=== PATIENT | male | born 1965 | race Caucasian/White ===

== ENCOUNTER → 2019-09-16 | Outpatient (CLI) | payer OTHER ==
[2019-09-16 19:54] LABS: African American GFR (CKD) 87.1 (60.0-200.0); Albumin 4.6 g/dL (3.80-4.90); Albumin/Globulin Ratio 2.3 (1.60-3.17); Anion Gap 9.4 mmol/L (4.00-12.00); Bilirubin, Conjugated 0.2 mg/dL (0.20-0.40); Bilirubin,Unconjugated 0.6 mg/dL; Carbon Dioxide 26.6 mmol/L (21.6-31.8); Chol/HDL Ratio 3.34; LDL Cholesterol,Calculated 86.2 mg/dL (0.0-131.0); Non-African American GFR(CKD) 75.2 (60.0-200.0); Potassium 4.2 mmol/L (3.5-5.5); Total Bilirubin 0.8 mg/dL (0.2-1.2); Total Protein 6.6 g/dL (6.2-8.2); VLDL Calculation 37.8 mg/dL (5.00-40.00)
== END | disposition home or self-care (01) ==
LOC: LABWHC1 09:22
PROVIDERS: ATTEND Internal Medicine
DX: I10 Essential (primary) hypertension (principal); E55.9 Vitamin D deficiency, unspecified; E78.5 Hyperlipidemia, unspecified
CPT/HCPCS: 36415; 80051; 80061; 80076; 82306; 82565; 84520

== ENCOUNTER 2021-05-18 16:44 | Observation (INO) | payer OTHER ==
[2021-05-18] MEDS ORDERED: ONDANSETRON 4 MG/2 ML VIAL IVP STA (17:21)
[2021-05-18] MEDS ORDERED: SODIUM CHLORIDE 0.9% 500 ML 500 ML IV STA (17:21)
--- NOTE | 2021-05-18 17:26 | ED ---
General Adult HPI - General Chief complaint: Abdominal Pain Stated complaint: abdominal pain Time Seen by Provider: 05/18/21 17:10 Source: patient, RN notes reviewed, old records reviewed Mode of arrival: ambulatory Limitations: no limitations - History of Present Illness Initial comments: 55-year-old male presenting with abdominal pain over the past 16 hours. This began abruptly at approximately 2 AM this morning. This is a constant pain periumbilical region. Patient has had multiple episodes of vomiting. He had normal bowel movements yesterday. No previous abdominal surgery. No fever. - Related Data Home Medications Medication Instructions Recorded Confirmed Atorvastatin [Lipitor] 10 mg PO HS 12/14/15 05/18/21 Aspirin EC [Ecotrin Low Dose] 81 mg PO DAILY 05/18/21 05/18/21 Losartan Potassium 50 mg PO DAILY 05/18/21 05/18/21 Allergies Allergy/AdvReac Type Severity Reaction Status Date / Time No Known Allergies Allergy Verified 05/18/21 17:56 Review of Systems ROS Statement: Those systems with pertinent positive or pertinent negative responses have been documented in the HPI. ROS Other: All systems not noted in ROS Statement are negative. Past Medical History Past Medical History: Hyperlipidemia, Hypertension History of Any Multi-Drug Resistant Organisms: None Reported Past Surgical History: Joint Replacement Additional Past Surgical History / Comment(s): lt hip Past Psychological History: No Psychological Hx Reported Smoking Status: Never smoker Past Alcohol Use History: Daily Past Drug Use History: None Reported General Exam Limitations: no limitations General appearance: alert, in no apparent distress Head exam: Present: atraumatic, normocephalic Eye exam: Present: normal appearance, PERRL Neck exam: Present: normal inspection Respiratory exam: Present: normal lung sounds bilaterally. Absent: respiratory distress, wheezes Cardiovascular Exam: Present: regular rate, normal rhythm GI/Abdominal exam: Present: soft, distended, tenderness (Mild periumbilical and right lower quadrant). Absent: guarding, rebound Extremities exam: Present: normal inspection, normal capillary refill. Absent: pedal edema, calf tenderness Neurological exam: Present: alert, oriented X3, CN II-XII intact. Absent: motor sensory deficit Psychiatric exam: Present: normal affect, normal mood Skin exam: Present: warm, dry, intact. 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 Medical Decision Making - Medical Decision Making 55-year-old male presenting with periumbilical abdominal pain concerning for ap pendicitis. Workup is initiated. Patient has a leukocytosis otherwise unremarkable laboratory testing. CT performed shows an uncomplicated acute appendicitis, appendix is dilated at 15 mm. Patient is initiated on Zosyn. I discussed case with Dr. Euceda who will evaluate the patient this evening and likely appendectomy tonight. PT is nothing by mouth. - Lab Data Result diagrams: 05/18/21 17:34 05/18/21 17:34 Lab Results 05/18/21 05/18/21 05/18/21 Range/Units 17:34 17:34 17:34 WBC 13.9 H (3.8-10.6) k/uL RBC 4.65 (4.30-5.90) m/uL Hgb 14.4 (13.0-17.5) gm/dL Hct 41.8 (39.0-53.0) % MCV 90.0 (80.0-100.0) fL MCH 31.0 (25.0-35.0) pg MCHC 34.5 (31.0-37.0) g/dL RDW 12.9 (11.5-15.5) % Plt Count 176 (150-450) k/uL MPV 8.2 Neutrophils % 87 % Lymphocytes % 7 % Monocytes % 3 % Eosinophils % 2 % Basophils % 0 % Neutrophils # 12.2 H (1.3-7.7) k/uL Lymphocytes # 0.9 L (1.0-4.8) k/uL Monocytes # 0.5 (0-1.0) k/uL Eosinophils # 0.3 (0-0.7) k/uL Basophils # 0.0 (0-0.2) k/uL PT 10.4 (9.0-12.0) sec INR 0.9 (<1.2) APTT 22.8 (22.0-30.0) sec Sodium 135 L (137-145) mmol/L Potassium 4.0 (3.5-5.1) mmol/L Chloride 100 (98-107) mmol/L Carbon Dioxide 24 (22-30) mmol/L Anion Gap 11 mmol/L BUN 16 (9-20) mg/dL Creatinine 0.95 (0.66-1.25) mg/dL Est GFR (CKD-EPI)AfAm >90 (>60 ml/min/1.73 sqM) Est GFR (CKD-EPI)NonAf 89 (>60 ml/min/1.73 sqM) Glucose 110 H (74-99) mg/dL Plasma Lactic Acid Duke (0.7-2.0) mmol/L Calcium 9.9 (8.4-10.2) mg/dL Total Bilirubin 1.0 (0.2-1.3) mg/dL AST 23 (17-59) U/L ALT 26 (4-49) U/L Alkaline Phosphatase 58 (38-126) U/L Troponin I (0.000-0.034) ng/mL Total Protein 8.2 (6.3-8.2) g/dL Albumin 5.2 H (3.5-5.0) g/dL Amylase 57 (30-110) U/L Lipase 51 (23-300) U/L 05/18/21 05/18/21 Range/Units 17:34 17:34 WBC (3.8-10.6) k/uL RBC (4.30-5.90) m/uL Hgb (13.0-17.5) gm/dL Hct (39.0-53.0) % MCV (80.0-100.0) fL MCH (25.0-35.0) pg MCHC (31.0-37.0) g/dL RDW (11.5-15.5) % Plt Count (150-450) k/uL MPV Neutrophils % % Lymphocytes % % Monocytes % % Eosinophils % % Basophils % % Neutrophils # (1.3-7.7) k/uL Lymphocytes # (1.0-4.8) k/uL Monocytes # (0-1.0) k/uL Eosinophils # (0-0.7) k/uL Basophils # (0-0.2) k/uL PT (9.0-12.0) sec INR (<1.2) APTT (22.0-30.0) sec Sodium (137-145) mmol/L Potassium (3.5-5.1) mmol/L Chloride (98-107) mmol/L Carbon Dioxide (22-30) mmol/L Anion Gap mmol/L BUN (9-20) mg/dL Creatinine (0.66-1.25) mg/dL Est GFR (CKD-EPI)AfAm (>60 ml/min/1.73 sqM) Est GFR (CKD-EPI)NonAf (>60 ml/min/1.73 sqM) Glucose (74-99) mg/dL Plasma Lactic Acid Duke 1.9 (0.7-2.0) mmol/L Calcium (8.4-10.2) mg/dL Total Bilirubin (0.2-1.3) mg/dL AST (17-59) U/L ALT (4-49) U/L Alkaline Phosphatase (38-126) U/L Troponin I <0.012 (0.000-0.034) ng/mL Total Protein (6.3-8.2) g/dL Albumin (3.5-5.0) g/dL Amylase (30-110) U/L Lipase (23-300) U/L Disposition Clinical Impression: Acute appendicitis Disposition: ADMITTED IP TO THIS HOSP Condition: Stable Is patient prescribed a controlled substance at d/c from ED?: No Referrals: Vita Vasquez MD [Primary Care Provider] - 1-2 days Decision to Admit Reason: Admit from EC Decision Date: 05/18/21 Decision Time: 19:15
[2021-05-18 17:44] LABS: Basophils % (A) 0 %; Eosinophils # (A) 0.3 k/uL (0-0.7); Eosinophils % (A) 2 %; HCT 41.8 % (39.0-53.0); HGB 14.4 gm/dL (13.0-17.5); Lymphocytes # (A) 0.9 k/uL (1.0-4.8); Lymphocytes % (A) 7 %; MCHC 34.5 g/dL (31.0-37.0); Mean Platelet Volume 8.2; Monocytes # (A) 0.5 k/uL (0-1.0); Monocytes % (A) 3 %; Neutrophils # (A) 12.2 k/uL (1.3-7.7); Neutrophils % (A) 87 %; Platelet Count 176 k/uL (150-450); RBC 4.65 m/uL (4.30-5.90); RDW 12.9 % (11.5-15.5); WBC 13.9 k/uL (3.8-10.6)
[2021-05-18 17:54] LABS: ALT 26 U/L (4-49); AST 23 U/L (17-59); African American GFR (CKD) >90 (>60 ml/min/1.73 sqM); Albumin 5.2 g/dL (3.5-5.0); Alkaline Phosphatase 58 U/L (38-126); Amylase 57 U/L (30-110); Anion Gap 11 mmol/L; Blood Urea Nitrogen 16 mg/dL (9-20); Calcium 9.9 mg/dL (8.4-10.2); Carbon Dioxide 24 mmol/L (22-30); Chloride 100 mmol/L (98-107); Glucose 110 mg/dL (74-99); Lipase 51 U/L (23-300); Non-African American GFR(CKD) 89 (>60 ml/min/1.73 sqM); Sodium 135 mmol/L (137-145); Total Protein 8.2 g/dL (6.3-8.2)
[2021-05-18 17:56] LABS: INR 0.9 (<1.2); Partial Thromboplastin Time 22.8 sec (22.0-30.0); Prothrombin Time 10.4 sec (9.0-12.0)
[2021-05-18] MEDS ORDERED: HYDROmorphone 0.5 MG/0.5 ML SYRINGE IVP STA (18:14)
--- NOTE | 2021-05-18 18:35 | CT ---
EXAMINATION TYPE: CT abdomen pelvis w con CT DLP: 1038.8 mGycm, Automated exposure control for dose reduction was used. DATE OF EXAM: 05/18/2021 6:19 PM COMPARISON: None. CLINICAL INDICATION:Male, 55 years old with history of abdominal pain; Generalized abdominal pain wit h nausea and vomiting. TECHNIQUE: Standard CT of the abdomen and pelvis following the administration of 100 cc of Isovue 3 00 IV contrast material. Coronal and sagittal reformats were performed. FINDINGS: LOWER CHEST: Unremarkable ABDOMEN LIVER: Unremarkable GALLBLADDER AND BILE DUCTS: Unremarkable. PANCREAS: Unremarkable. SPLEEN: Unremarkable. ADRENAL GLANDS: Unremarkable. KIDNEYS AND URETERS: No evidence of hydronephrosis or renal calculus. The ureters are unremarkable. PELVIS BLADDER: Unremarkable REPRODUCTIVE: Unremarkable. ABDOMEN & PELVIS STOMACH AND BOWEL: The appendix is identified and is dilated measuring up to 15 mm and filled with fl uid. No evidence of organizing fluid collection or evidence of free air. Changes are seen around the appendix. A density is seen near the ostium of the appendix which may represent appendicolith. No parviz dence of bowel obstruction. PERITONEUM: No evidence of pneumoperitoneum or free fluid. VASCULATURE: No evidence of aortic aneurysm. MUSCULOSKELETAL: No acute osseous abnormalities. Left total hip arthroplasty. LYMPH NODES: Prominent right lower quadrant mesenteric lymph node measuring up to millimeters in shor t axis as well as a stable lymph node measuring 9 mm in short axis. SOFT TISSUE/ABDOMINAL WALL: Unremarkable IMPRESSION: Acute uncomplicated appendicitis.
[2021-05-18] MEDS ORDERED: PIPERACILLIN-TAZOBACTAM 3.375 GM in SODIUM CHLORIDE 0.9% 100 ML IVPB STA (18:36)
[2021-05-18 19:00] LABS: Appearance,Urine Clear (Clear); Bilirubin,Urine Negative (Negative); Blood,Urine Negative (Negative); Color,Urine Yellow; Glucose,Urine (UA) Negative (Negative); Ketones,Urine 1+ (Negative); Leukocyte Esterase,Urine Negative (Negative); Nitrite,Urine Negative (Negative); PH, Urine 6.5 (5.0-8.0); Protein,Urine Trace (Negative); Urobilinogen,Urine <2.0 mg/dL (<2.0)
[2021-05-18] MEDS ORDERED: HYDROmorphone 0.5 MG/0.5 ML SYRINGE IVP PRN (19:09)
[2021-05-18] MEDS ORDERED: NALOXONE 0.4 MG/ML 1 ML VIAL IV PRN (19:09)
[2021-05-18 19:18] LABS: Specific Gravity,Urine >1.050 (1.001-1.035)
[2021-05-18] MEDS: SODIUM CHLORIDE 0.9% 1,000 ML IV SCH (19:19)
[2021-05-18] MEDS ORDERED: ACETAMINOPHEN TAB 325 MG TAB PO PRN (19:44)
[2021-05-18] MEDS ORDERED: KETOROLAC 30 MG/ML 1 ML VIAL IVP PRN (19:44)
[2021-05-18] MEDS ORDERED: ONDANSETRON 4 MG/2 ML VIAL IVP PRN (19:44)
--- NOTE | 2021-05-18 19:44 | P.GSHP ---
History of Present Illness H&P Date: 05/18/21 Chief Complaint: Abdominal pain, acute appendicitis demonstrated on CT Patient is a 55-year-old gentleman who presents to [facility] emergency department the evening of 05/18/2021 with chief complaints of an acute onset of mid abdominal pain that awoke him from sleep around 2:00 this morning. He admits to some episodic chills, denies fever. Denies radiation of pain. He has had associated anorexia, nausea and a few bouts of nonbloody emesis. He hasn't had similar discomfort in the past. No previous endoscopy. No known personal history of inflammatory bowel disease, peptic ulcer disease, or H. pylori infection. No known personal history of heart attack, stroke, DVT or pulmonary embolus. He is maintained in any manner of oral anticoagulants. He underwent computed tomography scan in the emergency department revealing findings consistent with an uncomplicated acute appendicitis. There is mild enlargement of the appendix, periappendiceal fat stranding and an appendicolith towards the base. No free air or free fluid reported. Laboratory studies revealed a modest leukocytosis. No previous abdominal surgery. - Review of Systems All systems: negative - Constitutional Constitutional: Reports as per HPI Past Medical History Past Medical History: Hyperlipidemia, Hypertension History of Any Multi-Drug Resistant Organisms: None Reported Past Surgical History: Joint Replacement Additional Past Surgical History / Comment(s): lt hip Past Psychological History: No Psychological Hx Reported Smoking Status: Never smoker Past Alcohol Use History: Daily Past Drug Use History: None Reported Medications and Allergies Home Medications Medication Instructions Recorded Confirmed Type Atorvastatin [Lipitor] 10 mg PO HS 12/14/15 05/18/21 History Aspirin EC [Ecotrin Low Dose] 81 mg PO DAILY 05/18/21 05/18/21 History Losartan Potassium 50 mg PO DAILY 05/18/21 05/18/21 History Allergies Allergy/AdvReac Type Severity Reaction Status Date / Time No Known Allergies Allergy Verified 05/18/21 17:56 Surgical - Exam Osteopathic Statement: *. No significant issues noted on an osteopathic structural exam other than those noted in the History and Physical/Consult. Vital Signs Temp Pulse Resp BP Pulse Ox 98.3 F 104 H 22 143/94 100 05/18/21 16:52 05/18/21 16:52 05/18/21 16:52 05/18/21 16:52 05/18/21 16:52 - General well developed, well nourished, no distress - Eyes PERRL, normal ocular movement - ENT normal pinna, normal nares, normal mucosa, no hearing loss - Respiratory normal expansion, normal respiratory effort, clear to auscultation - Cardiovascular Rhythm: regular Heart Sounds: normal: S1, S2 - Abdomen Moderate focal tenderness over McBurney's point, no guarding, rebound or distention. Rovsing sign is absent. Abdomen: soft - Neurologic normal coordination, normal sensation - Psychiatric oriented to time, oriented to person, oriented to place, speech is normal, memory intact Results - Labs 05/18/21 17:34 05/18/21 17:34 Abnormal Lab Results - Last 24 Hours (Table) 05/18/21 05/18/21 05/18/21 Range/Units 17:34 17:34 18:38 WBC 13.9 H (3.8-10.6) k/uL Neutrophils # 12.2 H (1.3-7.7) k/uL Lymphocytes # 0.9 L (1.0-4.8) k/uL Sodium 135 L (137-145) mmol/L Glucose 110 H (74-99) mg/dL Albumin 5.2 H (3.5-5.0) g/dL Ur Specific [place] >1.050 H (1.001-1.035) Urine Protein Trace H (Negative) Urine Ketones 1+ H (Negative) Diabetes panel 05/18/21 Range/Units 17:34 Sodium 135 L (137-145) mmol/L Potassium 4.0 (3.5-5.1) mmol/L Chloride 100 (98-107) mmol/L Carbon Dioxide 24 (22-30) mmol/L BUN 16 (9-20) mg/dL Creatinine 0.95 (0.66-1.25) mg/dL Glucose 110 H (74-99) mg/dL Calcium 9.9 (8.4-10.2) mg/dL AST 23 (17-59) U/L ALT 26 (4-49) U/L Alkaline Phosphatase 58 (38-126) U/L Total Protein 8.2 (6.3-8.2) g/dL Albumin 5.2 H (3.5-5.0) g/dL Calcium panel 05/18/21 Range/Units 17:34 Calcium 9.9 (8.4-10.2) mg/dL Albumin 5.2 H (3.5-5.0) g/dL Pituitary panel 05/18/21 Range/Units 17:34 Sodium 135 L (137-145) mmol/L Potassium 4.0 (3.5-5.1) mmol/L Chloride 100 (98-107) mmol/L Carbon Dioxide 24 (22-30) mmol/L BUN 16 (9-20) mg/dL Creatinine 0.95 (0.66-1.25) mg/dL Glucose 110 H (74-99) mg/dL Calcium 9.9 (8.4-10.2) mg/dL Adrenal panel 05/18/21 Range/Units 17:34 Sodium 135 L (137-145) mmol/L Potassium 4.0 (3.5-5.1) mmol/L Chloride 100 (98-107) mmol/L Carbon Dioxide 24 (22-30) mmol/L BUN 16 (9-20) mg/dL Creatinine 0.95 (0.66-1.25) mg/dL Glucose 110 H (74-99) mg/dL Calcium 9.9 (8.4-10.2) mg/dL Total Bilirubin 1.0 (0.2-1.3) mg/dL AST 23 (17-59) U/L ALT 26 (4-49) U/L Alkaline Phosphatase 58 (38-126) U/L Total Protein 8.2 (6.3-8.2) g/dL Albumin 5.2 H (3.5-5.0) g/dL Assessment and Plan Assessment: Impression: 1) 55-year-old gentleman with a physical exam, clinical history, laboratory studies, and imaging consistent with an acute uncomplicated appendicitis with fecalith. No evidence of rupture or abscess seen on CT. Plan: Plan: 1) options for treatment were discussed with the patient, he like to move forward with laparoscopic appendectomy this evening. He gave informed consent for the same after discussion of risks, benefits and alternatives to treatment. He's been started on broad-spectrum antibiotic coverage. If there is no evidenc e of rupture or abscess will anticipate discharge home tomorrow afternoon. Patient will be admitted to my care postoperatively. Pain and nausea control, mechanical and chemical DVT prophylaxis. Time with Patient: Greater than 30
[2021-05-18] MEDS ORDERED: LIDOCAINE 1% INJ 10MG/ML (20 ML MDV) ONE (20:27)
[2021-05-18] MEDS ORDERED: PROPOFOL 10 MG/ML 20 ML VIAL IV ONE (20:27)
[2021-05-18] MEDS ORDERED: MIDAZOLAM 2 MG/2 ML VIAL ONE (20:27)
[2021-05-18] MEDS ORDERED: SUCCINYLCHOLINE CHLORIDE 100 MG/5 ML SYR IV ONE (20:27)
[2021-05-18] MEDS ORDERED: ROCURONIUM 10 MG/ML (5 ML VIAL) IV ONE (20:27)
[2021-05-18] MEDS ORDERED: fentaNYL (PF) 50 MCG/ML 2 ML AMP ONE (20:27)
[2021-05-18] MEDS ORDERED: IV FLUID CONTINUATION 1,000 ML IV ONE (20:32)
[2021-05-18] MEDS ORDERED: BUPIVACAIN-EPI 0.25%-1:200,000 30 ML VIAL SQ ONE ×2 (20:51)
[2021-05-18] MEDS ORDERED: LIDOCAINE 1% INJ 10MG/ML (20 ML MDV) SQ ONE ×2 (20:51)
[2021-05-18] MEDS ORDERED: LACTATED RINGERS 1,000 ML IV ONE (21:18)
--- NOTE | 2021-05-18 22:48 | P.OP ---
Date of Procedure: 05/18/21 Preoperative Diagnosis: Acute appendicitis with fecalith Postoperative Diagnosis: Acute appendicitis rupture or abscess Procedure(s) Performed: Laparoscopic appendectomy Anesthesia: SHONA, local Surgeon: Jean-Pierre Euceda Estimated Blood Loss (ml): 5 Pathology: other (Appendix admitted to pathology) Condition: stable Disposition: floor Indications for Procedure: Patient is a 55-year-old gentleman who presents to [facility] emergency department with less than 24 hours of progressive mid abdominal pain with nausea, emesis and subjective chills along with symptoms of anorexia. Laboratory studies revealed a modest leukocytosis. Computed tomography scan revealed findings consistent with uncomplicated acute appendicitis with a fecalith towards the base. No evidence of rupture or abscess seen. Physical exam was consistent with the same. Patient didn't wish to move forward with laparoscopic appendectomy and gave informed consent for the same after discussion of risks, benefit and alternatives to treatment. Operative Findings: As above Description of Procedure: Patient was taken to the operating room suite and placed in supine position. Following induction of general endotracheal anesthesia he was prepped and draped in sterile fashion. Abdomen was entered and palmers point left upper quadrant after anesthetizing incising skin with a 5 mm port under laparoscopic visualization. Abdomen was insufflated and surveyed. No apparent injury or bleeding were noted. 5 mm port was placed at the umbilical position and suprapubic position. The palmers point port was upsized to 12 mm. Cecum was readily identified as well as the ileocecal valve and rather indurated and inflamed appendix. A window was created bluntly at the base of the appendix at its junction with the cecum and the mesoappendix and appendiceal artery taken down with LigaSure. Appendix was divided at its confluence with the cecum with Endo YAJAIRA [facility] [address]. Specimen was retrieved with Endo Catch bag through the palmers point port site and submitted to pathology. Staple line was intact, hemostasis excellent. Fascia at the 12 mm trocar site was closed with 0 Vicryl time Dennis suture passer. Abdomen was desufflated, all ports withdrawn and skin over each trocar closed with interrupted inverted 3-0 Vicryl dermal suture. Incisions were dressed with Dermabond adhesive and the patient transferred to the postanesthesia care unit in stable condition. Patient will be admitted to my care postoperatively, anticipate discharge home tomorrow afternoon if there are no issues overnight.
[2021-05-18] MEDS: HEPARIN SODIUM,PORCINE/PF 5,000 UNIT/0.5 ML SYRINGE SQ SCH (23:08)
[2021-05-19] MEDS: HEPARIN SODIUM,PORCINE/PF 5,000 UNIT/0.5 ML SYRINGE SQ SCH (02:08)
[2021-05-19] MEDS ORDERED: PIPERACILLIN-TAZOBACTAM 3.375 GM in SODIUM CHLORIDE 0.9% 100 ML IVPB SCH (03:00)
[2021-05-19] MEDS: SODIUM CHLORIDE 0.9% 1,000 ML IV SCH (03:05)
[2021-05-19 08:04] VITALS: BP 113/67; PULSE 73; RESP 18; TEMP 98.6
[2021-05-19] MEDS ORDERED: LOSARTAN 50 MG TAB PO SCH (09:00)
--- NOTE | 2021-05-19 11:38 | P.DS ---
Providers Date of admission: 05/18/21 19:09 Expected date of discharge: 05/19/21 Attending physician: Jean-Pierre Euceda DO Consults: 05/18/21 19:49 Consult Physician Routine Consulting Provider: [facility] Consult Reason/Comments: [facility] Do you want consulting provider notified?: Yes Primary care physician: Pedro Gorman - Discharge Diagnosis(es) (1) Acute appendicitis Current Visit: Yes Status: Acute Priority: High Onset Date: ~05/18/21 Hospital Course: Patient is a 55-year-old gentleman who presents to [facility] emergency department the evening of 05/18/2021 with chief complaints of an acute onset of mid abdominal pain that awoke him from sleep around 2:00 this morning. He admits to some episodic chills, denies fever. Denies radiation of pain. He has had associated anorexia, nausea and a few bouts of nonbloody emesis. He hasn't had similar discomfort in the past. No previous endoscopy. No known personal history of inflammatory bowel disease, peptic ulcer disease, or H. pylori in fection. No known personal history of heart attack, stroke, DVT or pulmonary embolus. He is maintained in any manner of oral anticoagulants. He underwent computed tomography scan in the emergency department revealing findings consistent with an uncomplicated acute appendicitis. There is mild enlargement of the appendix, periappendiceal fat stranding and an appendicolith towards the base. No free air or free fluid reported. Laboratory studies revealed a modest leukocytosis. No previous abdominal surgery. Patient had a physical exam, clinical history, and imaging consistent with acute appendicitis rupture or abscess. Options for treatment were discussed and the patient wished to move forward with laparoscopic appendectomy without delay and gave informed consent for the same after discussion of risks, benefit alternatives to treatment. He received preoperative broad-spectrum antibiotics. He was taken the operating room on date of presentation with findings consistent with the same. Appendix was indurated and inflamed but no evidence of rupture or abscess seen. Appendectomy proceeded without incident, he was admitted to my care postoperatively. He remained hemodynamically stable and afebrile overnight. By the morning his presenting pains had subsided. He tolerated a clear liquid diet without issue. Presenting tenderness over McBurney's point had resolved, he did not require narcotics for pain overnight. Patient was discharged home with instructions to follow up with general surgery in the clinic within 1 week and avoid any strenuous activity or heavy lifting for 4-6 weeks postoperatively. He can shower normally starting this evening. He was advised cystic with a bland diet for 2 weeks. Patient Condition at Discharge: Stable Plan - Discharge Summary Discharge Rx Participant: No New Discharge Prescriptions: No Action Atorvastatin [Lipitor] 10 mg PO HS Losartan Potassium 50 mg PO DAILY Aspirin EC [Ecotrin Low Dose] 81 mg PO DAILY Discharge Medication List Atorvastatin [Lipitor] 10 mg PO HS 12/14/15 [History] Aspirin EC [Ecotrin Low Dose] 81 mg PO DAILY 05/18/21 [History] Losartan Potassium 50 mg PO DAILY 05/18/21 [History] Follow up Appointment(s)/Referral(s): Vita Vasquez MD [Primary Care Provider] - 1-2 days Activity/Diet/Wound Care/Special Instructions: May shower normally starting this evening. Stick with a bland soft diet for 2 weeks. Follow-up with Dr. Forrest or Dr. De La Fuente in 1 week in the general surgery clinic at [facility]. Discharge Disposition: HOME SELF-CARE
[2021-05-19 12:48] LABS: Basophils # (A) 0.03 X 10*3/uL (0.00-0.10); Basophils % (A) 0.4 %; Eosinophils # (A) 0.06 X 10*3/uL (0.04-0.35); Eosinophils % (A) 0.7 %; HCT 39.9 % (39.6-50.0); HGB 12.8 g/dL (13.0-17.0); Lymphocytes # (A) 1.29 X 10*3/uL (0.90-5.00); Lymphocytes % (A) 15.2 %; MCH 29.7 pg (27.0-32.0); MCHC 32.1 g/dL (32.0-37.0); MCV 92.6 fL (80.0-97.0); Mean Platelet Volume 11.7 fL (9.5-12.2); Monocytes # (A) 0.59 X 10*3/uL (0.20-1.00); Neutrophils # (A) 6.47 X 10*3/uL (1.80-7.70); Neutrophils % (A) 76.5 %; Platelet Count 165 X 10*3/uL (140-440); RBC 4.31 X 10*6/uL (4.40-5.60); RDW 13.6 % (11.5-14.5); WBC 8.46 X 10*3/uL (4.50-10.00)
[2021-05-19 13:03] LABS: African American GFR (CKD) 73.6 (60.0-200.0); Albumin 4.4 g/dL (3.8-4.9); Albumin/Globulin Ratio 2.18 (1.60-3.17); Anion Gap 12.7 mmol/L (10.00-18.00); BUN/Creat Ratio 9.12 Ratio (12.00-20.00); Blood Urea Nitrogen 11.4 mg/dL (9.0-27.0); Calcium 9.2 mg/dL (8.7-10.3); Carbon Dioxide 24.8 mmol/L (20.0-27.5); Non-African American GFR(CKD) 63.5 (60.0-200.0); Potassium 4.3 mmol/L (3.5-5.5); Total Bilirubin 1.1 mg/dL (0.30-1.20); Total Protein 6.4 g/dL (6.2-8.2)
== END 2021-05-19 12:27 | disposition home or self-care (01) ==
LOC: EC 16:44 → 6NMEDSUR 19:09
PROVIDERS: ADMIT Surgery; ATTEND Surgery
DX: K35.80 Unspecified acute appendicitis (principal); K38.1 Appendicular concretions; I10 Essential (primary) hypertension; E78.5 Hyperlipidemia, unspecified; I45.10 Unspecified right bundle-branch block; Z20.822 Contact with and (suspected) exposure to COVID-19; Z79.899 Other long term (current) drug therapy; Z79.82 Long term (current) use of aspirin; Z71.3 Dietary counseling and surveillance
CPT/HCPCS: 44970; 36415; 93005; 80053 ×2; 82150; 83605; 83690; 84484; 85025 ×2; 85610; 85730; 81003; 87635; 74177; G0378 ×2; J2543 ×2; J2250; J2405; J2001; J3010; J1885; J0330; J2704; J1170; Q9967; J1644; 88304; 96361; 96374; 96375; 99285

== ENCOUNTER → 2023-01-23 | Outpatient (CLI) | payer OTHER ==
[2023-01-23 08:17] VITALS: BP 136/83; PULSE 88; RESP 16; TEMP 97.8
--- NOTE | 2023-01-23 14:49 | P.PAINPG ---
PQRS Measure Charge Sheet Comment: HISTORY OF PRESENT ILLNESS: 57 yr old male w at side as a referral from Dr Fofana presents today w severe and chronic LBP secondary to DDD, spondylosis and facet arthropathy without myelopathy for evaluation. Pt states pain level is provoked at 9 /10 in intensity, constant, localized in the L lower lumbar spine, sharp in character w shooting pain towards L groin and L knee. Pain is provoked by sitting for periods of 30 min or more. Pain is alleviated by heat, ice, medications ([place]), repositoning and rest. He underwent a L paramedian JODI L3-L4 1 wk ago while hospitalized. Oswestry axial pain score at 24. PMH: OA, Hyperlipidemia, HTN PSH: RBBB, Appendectomy, L Hip Replacement SH: +Tobacco use, No ETOH use, No illicit drug use FH: Non contributory All: See list Meds: See list REVIEW OF ORGAN SYSTEMS: CONSTITUTIONAL: No fevers or chills. No recent weight loss. NEUROLOGICAL: + numbness and tingling along the distal extremities. No seizure disorders or headaches. MUSCULOSKELETAL: + pain PSYCHIATRIC: Denies current depression or suicidal thoughts. Physical Examinations : Constitutional : Cooperative , not in acute distress . Neurologic : Cranial nerve II to XII intact. No focal neurological deficits. Psychiatric : alert & oriented x 3. Matching mood & appropriate affect. Judgment & insight intact. Musculoskeletal : Cervical Spine Motor strength in the deltoid and biceps: Normal right side. Normal Left side Motor strength biceps and the wrist extensors: Normal right side . Normal left side Motor strength in the triceps muscle: Normal right side. Normal left side Deep tendon reflexes: Normal at the biceps. Normal at Brachioradialis. Normal at triceps Vertebral body tenderness to deep palpation over Cervical facet loading test: positive bilaterally Spurling test: positive bilaterally Neck distraction test: positive bilaterally Elijah sign: positive bilaterally Lumbar spine Motor strength lower extremities ,thigh and legs 5/5 Right side , 5/5 Left side Deep tendon reflexes : Normal Knee Jerk. Normal Ankle Jerk Vertebral body tenderness over L4 Lilly Test positive over L L3-L4 Lumbar facet Loading Test: positive Right / positive Left Range of motion of the lumbar spine Flexion 30 degrees, extension 10 degrees Straight Leg Raise test: Left/ Right positive at degree Isaiah test: positive right / positive left. Severe tenderness over the Sacroiliac joint on the Right / Left sides Tranlen test: positive bilaterally Seated flexion test: positive bilaterally. Sacral spine : Severe tenderness over the Sacroiliac joint: right side / left side Range of motion: Flexion of the lumbar spine <60 degrees Range of motion: Extension of the lumbar spine <20 degrees Gaenslen's Test positive Zechariah's Test positive Isaiah test: positive right side / left side Thigh Thrust Test Sacral Thrust Test Imaging: MRI noncontrast of the lumbar spine from 01/13/23 reviewed Assessment/ Plan : Lumbar DDD Recommendation of PT x 6 wks Dx M51.36 RTC in 6 wks for a re evaluation. All questions answered. I have spent greater than 30 minutes on patient care today. Dr Venegas was available by phone for the evaluation of this patient. The time was used to review the medical records including relevant urine studies and Prescription history (MAPs), review of the available imaging, evaluation and examination of the patient, coordination of care with the medical staff and if applicable referring physicians, as well as creation of the medical record Home Medications: Ambulatory Orders Atorvastatin [Lipitor] 10 mg PO HS 12/14/15 Aspirin EC [Ecotrin Low Dose] 81 mg PO DAILY 05/18/21 Losartan Potassium 50 mg PO DAILY 05/18/21 HYDROcodone/APAP 7.5-325MG [[place] 7.5-325] 1 tab PO Q4H PRN 01/12/23 predniSONE [Deltasone] See Taper PO DIRECTED 01/12/23 Cyclobenzaprine [Flexeril] 10 mg PO TID PRN #30 tab 01/15/23 Sennosides-Docusate Sodium [Senokot-S] 2 each PO BID tab 01/15/23 polyethylene glycoL 3350 [Miralax] 17 gm PO DAILY packet 01/15/23 predniSONE [Deltasone] 20 mg PO DIRECTED 12 Days #24 tab 01/15/23 Controlled Substance Measures - Controlled Substance Measures Is patient prescribed a controlled substance at discharge?: No
== END ==
LOC: PNWHC3 07:42
PROVIDERS: ATTEND Anesthesiology
DX: M51.36 Other intervertebral disc degeneration, lumbar region (principal); M19.90 Unspecified osteoarthritis, unspecified site; E78.5 Hyperlipidemia, unspecified; I10 Essential (primary) hypertension; Z79.82 Long term (current) use of aspirin; Z79.899 Other long term (current) drug therapy
CPT/HCPCS: 99211